=== PATIENT | male | born 1960 | race African-American/Black ===

== ENCOUNTER 2022-04-29 12:52 | Outpatient (CLI) | payer OTHER | END 2022-04-29 12:53 | disposition home or self-care (01) | PROVIDERS: ATTEND Family Medicine | DX: R26.81 Unsteadiness on feet (principal) ==

== ENCOUNTER 2024-08-23 12:43 | Outpatient (CLI) | payer OTHER, MEDICAID ==
[2024-08-23 13:34] LABS: #Basophils 0.08 10x3/uL (0.0-0.2); %Basophils 0.7 % (0.0-1.0); %Eosinophils 1.1 % (0.0-10.0); %Lymphocytes 26.9 % (21.0-51.0); %Monocytes 6.6 % (0.0-10.0); %Neutrophils 64.4 % (42.0-75.0); Hematocrit 41.2 % (42.0-52.0); Hemoglobin 13.6 g/dL (14.0-18.0); Mean Corpuscular Hemoglobin 29.4 pg (27.0-31.0); Mean Corpuscular Volume 89.2 fL (78.0-98.0); Mean Platelet Volume 10.5 fL (7.4-10.4); Platelet Count 272 10x3/uL (130-400); RBC Distribution Width 13.9 % (11.5-14.5); Red Blood Cell (RBC) Count 4.62 mill/uL (4.70-6.10)
[2024-08-23 14:00] LABS: Prothrombin Time 12.8 sec (12.0-14.7)
[2024-08-23 14:10] LABS: Anion Gap 12 mmol/L (10-20); BUN (Urea Nitrogen) 18 mg/dL (8.4-25.7); Calc. Creatinine Clearance 0 mL/min (70-130); Calcium 9.5 mg/dL (7.8-10.44); Carbon Dioxide 23 mmol/L (23-31); Chloride 109 mmol/L (98-107); Estimated GFR 98; Glucose 107 mg/dL (80-115); Potassium 4.1 mmol/L (3.5-5.1); Sodium 140 mmol/L (136-145)
== END 2024-08-23 12:44 | disposition home or self-care (01) ==
LOC: LABBT 12:43
PROVIDERS: ATTEND Orthopaedic Surgery
DX: Z01.812 Encounter for preprocedural laboratory examination (principal); M16.12 Unilateral primary osteoarthritis, left hip
CPT/HCPCS: 80048; 85025; 85610; 87081; 93005; 93010

== ENCOUNTER 2024-08-24 06:55 | Observation (INO) | payer OTHER, MEDICAID ==
[2024-08-23 12:53] VITALS: BMI 38.6
[2024-08-24] MEDS ORDERED: Vancomycin (BATCH) 1.5 GM/300 ML BAG ONE (07:51)
[2024-08-24] MEDS ORDERED: Tranexamic Acid 1,000 MG/10 ML VIAL ONE (07:51)
[2024-08-24] MEDS ORDERED: Sodium Chloride 0.9% 100 ML ONE (07:51)
[2024-08-24] MEDS ORDERED: PROPOFOL 60 ML ONE (08:30)
[2024-08-24] MEDS ORDERED: Rocuronium Bromide 10 MG/ML (10ML VIAL) ONE (08:30)
[2024-08-24] MEDS ORDERED: Ondansetron PF 4 MG/2 ML Vial ONE ×2 (08:30→14:24)
[2024-08-24] MEDS ORDERED: fentaNYL 50 mcg/mL 1 mL Vial ONE ×3 (08:30→13:29)
[2024-08-24] MEDS ORDERED: Midazolam HCl 2 mg/2 ml Vial ONE ×3 (08:30→09:21)
[2024-08-24] MEDS ORDERED: fentaNYL PF 100 MCG/2 ML SYRINGE ONE (08:30)
[2024-08-24] MEDS ORDERED: Dexamethasone 4 mg/ml Vial ONE (08:30)
[2024-08-24] MEDS ORDERED: Lidocaine 2% PF 100 mg/5 ml Syringe ONE (08:30)
[2024-08-24] MEDS ORDERED: PHENYLEPHRINE-NS 100 MCG/ML 10 ML SYRINGE ONE ×2 (08:32→11:24)
[2024-08-24] MEDS ORDERED: Dexmedetomidine 200 MCG/2 ML VIAL ONE (08:35)
[2024-08-24] MEDS ORDERED: Acetaminophen 500 MG TAB ONE (08:52)
[2024-08-24] MEDS ORDERED: CEFAZOLIN 2 GM VIAL ONE (09:29)
[2024-08-24] MEDS ORDERED: Ketamine In 0.9 % NaCl 50 MG/5 ML SYRINGE ONE (10:53)
[2024-08-24] MEDS ORDERED: ePHEDrine Sulfate 50 MG/10 ML VIAL ONE (11:04)
[2024-08-24] MEDS ORDERED: PROPOFOL 20 ML ONE (11:13)
[2024-08-24] MEDS ORDERED: HYDROmorphone 2 MG/ML VIAL ONE ×2 (11:20→13:35)
[2024-08-24] MEDS ORDERED: SUGAMMADEX SODIUM 200 MG/2 ML VIAL ONE (11:52)
[2024-08-24] MEDS ORDERED: fentaNYL 50 mcg/mL 1 mL Vial SLOW IVP PRN ×2 (12:10)
[2024-08-24] MEDS ORDERED: Promethazine HCl 25 MG/ML VIAL IM PRN (12:10)
[2024-08-24] MEDS ORDERED: Acetaminophen 325 MG TAB PO PRN (12:10)
[2024-08-24] MEDS ORDERED: Meclizine HCl 25 MG TAB PO PRN (12:10)
[2024-08-24] MEDS ORDERED: traMADol HCl 50 MG TAB PO PRN (12:10)
[2024-08-24] MEDS ORDERED: diphenhydrAMINE 25 MG CAP PO PRN (12:10)
[2024-08-24] MEDS ORDERED: HYDROmorphone 0.5 MG/0.5 ML SYRINGE ONE (13:08)
[2024-08-24] MEDS ORDERED: Labetalol HCl 100 MG/20 ML VIAL ONE (13:11)
[2024-08-24] MEDS: Sodium Chloride 0.9% 1,000 ML IV SCH (16:12)
[2024-08-24] MEDS: Ketorolac Tromethamine 30 MG (1 mL) VIAL IVP SCH (16:14)
[2024-08-24] MEDS: CEFAZOLIN 2 GM in Sodium Chloride 0.9% 100 ML IVPB SCH (18:28)
[2024-08-24] MEDS: Zolpidem Tartrate 5 MG TAB PO PRN (20:27)
[2024-08-24] MEDS: Ferrous Gluconate 324 MG TAB PO SCH (20:27)
[2024-08-24] MEDS: Atorvastatin Calcium 40 MG TAB PO SCH (20:28)
[2024-08-24] MEDS: Senokot S 8.6-50 MG TAB PO SCH (20:28)
[2024-08-24] MEDS: HYDROcodone/Acetaminophen 10/325 mg Tablet PO PRN (20:28)
[2024-08-24] MEDS: Aspirin 81 mg Enteric Coated Tablet PO SCH (20:28)
[2024-08-25] MEDS: traMADol HCl 50 MG TAB PO PRN (03:04)
[2024-08-25] MEDS: HYDROcodone/Acetaminophen 10/325 mg Tablet PO PRN (03:59)
[2024-08-25] MEDS: Multivitamin W/ Minerals 1 TAB PO SCH (08:02)
[2024-08-25] MEDS: Lisinopril 10 MG TAB PO SCH (08:02)
[2024-08-25 09:00] LABS: Hemoglobin 11.2 g/dL (14.0-18.0); Mean Corpuscular Hemoglobin 29.2 pg (27.0-31.0); Mean Corpuscular Volume 91.1 fL (78.0-98.0); Mean Platelet Volume 11.1 fL (7.4-10.4); Platelet Count 236 10x3/uL (130-400); Red Blood Cell (RBC) Count 3.84 mill/uL (4.70-6.10)
[2024-08-25] MEDS: Ondansetron PF 4 MG/2 ML Vial IVP PRN (10:46)
[2024-08-26 04:54] LABS: Mean Corpuscular HGB CONC 32.4 g/dL (32.0-36.0); Mean Corpuscular Hemoglobin 29.4 pg (27.0-31.0); Mean Corpuscular Volume 90.9 fL (78.0-98.0); Mean Platelet Volume 11.3 fL (7.4-10.4); Platelet Count 215 10x3/uL (130-400); RBC Distribution Width 14.1 % (11.5-14.5); Red Blood Cell (RBC) Count 3.74 mill/uL (4.70-6.10)
[2024-08-26 08:37] VITALS: TEMP 98
[2024-08-26 09:07] VITALS: BP 131/79
== END 2024-08-26 11:22 | disposition home or self-care (01) ==
LOC: SDC 06:55 → SURG A 14:34 → SDC 17:26
PROVIDERS: ADMIT Orthopaedic Surgery; ATTEND Orthopaedic Surgery
PROC: 0SRB0JZ Replacement of Left Hip Joint with Synthetic Substitute, Open Approach (ICD-10-PCS; principal; 2024-08-24)
DX: M16.12 Unilateral primary osteoarthritis, left hip (principal); M16.52 Unilateral post-traumatic osteoarthritis, left hip; I10 Essential (primary) hypertension; E78.00 Pure hypercholesterolemia, unspecified; F17.200 Nicotine dependence, unspecified, uncomplicated; D72.829 Elevated white blood cell count, unspecified; Z79.82 Long term (current) use of aspirin; Z79.899 Other long term (current) drug therapy
CPT/HCPCS: 27130; 72170; 73501; 85027 ×2; 96374; 96375 ×2; 96376; 97116 ×2; 97530 ×4; 97535; C1713; C1776; G0378 ×3; J1100; J1885 ×2; J2003; J2250; J2405 ×2; J2704; J3010; J3370; J3490; 36415; J7030